=== PATIENT | female | born 1975 | race Caucasian/White ===

== ENCOUNTER 2018-05-26 07:00 | Day surgery (SDC) | payer OTHER ==
[~2018-05-26] VITALS: Ht 152.4 cm; Wt 59.0 kg
[~2018-05-26 07:00] MED LIST: INDERA PO; SYNTHROID112 MCG PO
[2018-05-27] MEDS ORDERED: CODE1TAB37 PO (09:05)
== END 2018-05-27 08:00 | disposition home or self-care (01) ==
LOC: CIR.AMB 07:00 → OB/GYN 10:30 → EDSTATUS 11:00 → OB/GYN 11:29 → O/R 11:29 → CIR.AMB 05-27 08:00 → OB/GYN 05-27 12:18
DX: D25.1 Intramural leiomyoma of uterus (principal); N81.11 Cystocele, midline; E03.8 Other specified hypothyroidism; N80.0 Endometriosis of uterus; N72 Inflammatory disease of cervix uteri

== ENCOUNTER 2019-11-20 09:34 | Outpatient (CLI) | payer OTHER ==
[~2019-11-20 09:34] MED LIST changes: +CODE1TAB37 PO
== END 2019-11-20 09:35 | disposition home or self-care (01) ==
LOC: SONOGRAMA 09:34
DX: C73 Malignant neoplasm of thyroid gland (principal); E89.0 Postprocedural hypothyroidism

== ENCOUNTER → 2022-06-09 | Emergency (ER) | payer OTHER | END | disposition left against medical advice (07) | LOC: ER 15:05 | DX: Z53.21 Procedure and treatment not carried out due to patient leaving prior to being seen by health care provider (principal) ==

== ENCOUNTER 2025-10-08 22:06 | Emergency (ER) | payer OTHER ==
[~2025-10-08] VITALS: Ht 152.4 cm; Wt 55.3 kg
[2025-10-09] MEDS ORDERED: FAMOTIDINE/PF 20 MG/2 ML VIAL IV STA (00:28)
[2025-10-09] MEDS ORDERED: 0.9 % SODIUM CHLORIDE 1,000 ML IV STA (00:28)
[2025-10-09] MEDS ORDERED: ONDANSETRON HCL 2 MG/ML VIAL IV STA (00:28)
[2025-10-09] MEDS ORDERED: LACTOBACILLUS ACIDOPHILUS 1 CAP CAP PO STA (00:28)
== END 2025-10-08 22:24 | disposition left against medical advice (07) ==
LOC: ER 22:07
DX: K52.89 Other specified noninfective gastroenteritis and colitis (principal); Z88.0 Allergy status to penicillin; Z88.6 Allergy status to analgesic agent; I10 Essential (primary) hypertension; E03.8 Other specified hypothyroidism

== ENCOUNTER 2025-10-29 12:31 | Emergency (ER) | payer OTHER ==
[~2025-10-29] VITALS: Ht 154.9 cm; Wt 55.8 kg
[2025-10-29 13:03] VITALS: BP 112/71; O2SAT 98
[2025-10-29] MEDS ORDERED: TRAMADOL HCL 50 MG TABLET PO ONE (15:45)
== END 2025-10-29 21:13 | disposition home or self-care (01) ==
LOC: ER 12:32
DX: S99.811A Other specified injuries of right ankle, initial encounter (principal); W18.39XA Other fall on same level, initial encounter; Y93.89 Activity, other specified; Y92.89 Other specified places as the place of occurrence of the external cause; Z88.0 Allergy status to penicillin; Z88.6 Allergy status to analgesic agent; E78.00 Pure hypercholesterolemia, unspecified; E03.8 Other specified hypothyroidism